=== PATIENT | male | born 1950 | race Caucasian/White ===

== ENCOUNTER 2016-06-22 00:52 | Emergency (ER) | payer SELFPAY ==
[2016-06-22] MEDS ORDERED: CLINDAMYCIN 150 MG CAP PO ONE (01:20)
--- NOTE | 2016-06-22 01:29 | Emergency Department Record ---
History of Present Illness - General Chief complaint: Abscess Stated complaint: CYST IN ARMPIT Time Seen by Provider: 06/22/16 01:03 Source: Patient Mode of Arrival: Ambulatory Limitations: No limitations - History of Present Illness Initial comments: 66 yo male presents with a right axillary area of swelling, pain, redness, and warmth. It has been ongoing for about 3 days. He did have a small cyst in that area prior. This area has greatly increased in size the last 3 days. No fever. He does have some surrounding spreading redness. MD complaint: Abscess/boil Onset/Timin -: Days(s) Year of Tetanus Vaccination: unsure Location: RUE Severity: Mild Consistency: Getting worse Improves with: None Worsens with: None Context: None Associated symptoms: Denies other symptoms Treatments Prior to Arrival: None - Related Data Previous Rx's Medication Instructions Recorded Clindamycin HCl [Cleocin HCl] 300 mg PO QID #28 capsule 06/22/16 Allergies Allergy/AdvReac Type Severity Reaction Status Date / Time No Known Drug Allergies Allergy Verified 06/22/16 01:09 Travel Screening - Travel/Exposure Within Last 30 Days Have you traveled within the last 30 days?: No - Travel/Exposure Within Last Year Have you traveled outside the [place] in the last year?: No - Additonal Travel Details Have you been exposed to anyone with a communicable illness?: No - Travel Symptoms Symptom Screening: None Review of Systems Constitutional: Denies: Chills, Fever, Malaise, Weakness Eyes: Denies: Eye discharge, Eye pain, Photophobia ENT: Denies: Congestion, Ear pain, Throat pain Respiratory: Denies: Cough, Dyspnea, Hemoptysis, Stridor, Wheezes Cardiovascular: Denies: Chest pain, Palpitations, Syncope Endocrine: Denies: Fatigue Gastrointestinal: Denies: Abdominal pain, Diarrhea, Nausea, Vomiting Genitourinary: Denies: Dysuria, Frequency, Hematuria Musculoskeletal: Denies: Arthralgia, Joint swelling, Myalgia Skin: Reports: Change in color, Lesions. Denies: Bruising Neurological: Denies: Confusion, Headache, Weakness Psychiatric: Denies: Anxiety Hematological/Lymphatic: Denies: Blood Clots, Easy bleeding, Easy bruising, Swollen glands Past Medical History - SOCIAL HISTORY Smoking Status: Never smoker Alcohol Use: Heavy Drug Use: None - RESPIRATORY Hx Respiratory Disorders: No - CARDIOVASCULAR Hx Cardio Disorders: No - NEURO Hx Neuro Disorders: No - GI Hx GI Disorders: No - Hx Genitourinary Disorders: No - ENDOCRINE Hx Endocrine Disorders: No - MUSCULOSKELETAL Hx Musculoskeletal Disorders: No - PSYCH Hx Psych Problems: No - HEMATOLOGY/ONCOLOGY Hx Hematology/Oncology Disorders: No Family Medical History Any Significant Family History?: No Physical Exam - General General Appearance: Alert, Oriented x3, Cooperative, No acute distress Limitations: No limitations - Head Head exam: Atraumatic, Normal inspection - Eye Eye exam: Normal appearance, PERRL. negative: Conjunctival injection, Periorbital swelling - ENT ENT exam: Normal exam Ear exam: Normal external inspection Nasal Exam: Normal inspection Mouth exam: Normal external inspection - Neck Neck exam: Normal inspection, Full ROM. negative: Lymphadenopathy, Tenderness - Respiratory Respiratory exam: Normal lung sounds bilaterally. negative: Accessory muscle use, Respiratory distress, Rhonchi, Stridor, Wheezes - Cardiovascular Cardiovascular Exam: Regular rate, Normal rhythm, Normal heart sounds Peripheral Pulses: 2+: Radial (R) - Rectal Rectal exam: Deferred - exam: Deferred - Extremities Extremities exam: Full ROM, Tenderness. negative: Normal inspection, Normal capillary refill Image of Full Body: 1 - right axilla demonstrates an area of warmth, swelling [id number], erythema and tenderness consistent with abscess vs infected sebaceous cyst with a small area of surrounding cellulitis - Back Back exam: Reports: Normal inspection - Neurological Neurological exam: Alert, Oriented X3 - Psychiatric Psychiatric exam: Normal affect, Normal mood - Skin Skin exam: Erythema Course Vital Signs 06/22/16 00:57 Temperature 97.6 F Pulse Rate 62 Respiratory 20 Rate Blood Pressure 183/113 Pulse Ox 92 L - Reevaluation(s) Reevaluation #1: The patient has an abscess vs an infected sebaceous cyst I discussed with him the options. He is requesting I and D which is what I recommend at this time PROCEDURE Betadine Prep Lidocaine 1% with Epi 3cc 11 blade used to make a 1.5cm incision Initial purulence was cultured The area expressed initially pus then a thick cheesy oderous material consistent with a sebaceous cyst that was infected The area was expressed until free of the white cheesy material and copiously irrigated A packing was placed in the wound He will additionally be referred to the general surgery clinic for follow up. 06/22/16 01:25 Disposition Disposition: Discharge Clinical Impression: Infected sebaceous cyst Disposition: Home, Self-Care Condition: (1) Good Instructions: Abscess Incision and Drainage (ED) Additional Instructions: Return on Wednesday to have the packing removed Clindamycin 4 times daily You are being referred to Dr Wright of general surgery given the possible recurrence of the infection/cyst Prescriptions: Clindamycin HCl [Cleocin HCl] 300 mg PO QID #28 capsule Referrals: Jameel Wright [DOCTOR OF OSTEOPATH] - [facility] [Provider Group] Forms: Patient Portal Access Time of Disposition: 01:30
== END 2016-06-22 01:55 | disposition home or self-care (01) ==
LOC: ER 00:52
DX: L72.3 Sebaceous cyst (principal)
CPT/HCPCS: 10060; 99284

== ENCOUNTER 2016-06-24 06:09 | Emergency (ER) | payer SELFPAY ==
--- NOTE | 2016-06-24 06:26 | Emergency Department Record ---
History of Present Illness - General Chief Complaint: Wound, check Stated Complaint: RECHECK Time Seen by Provider: 06/24/16 06:21 Source: Patient Mode of arrival: Ambulatory Limitations: No limitations - History of Present Illness Initial Comments: 66 yo male presents to ED for a recheck on his abscess following I & D approximately 48 hours ago. Patient is here to have packing removed from the area. Patient denies redness, increased pain, fevers, chills, or any worsening of his symptoms. MD Complaint: Wound re-check Onset/Timin -: Days(s) Initial Visit For: Abscess Returns Today for: Wound recheck Symptoms Since Prior Visit: No new symptoms, Improved Associated Symptoms: None Treatments Prior to Arrival: Other - Related Data Previous Rx's Medication Instructions Recorded Clindamycin HCl [Cleocin HCl] 300 mg PO QID #28 capsule 06/22/16 Allergies Allergy/AdvReac Type Severity Reaction Status Date / Time No Known Drug Allergies Allergy Verified 06/22/16 01:09 Travel Screening - Travel/Exposure Within Last 30 Days Have you traveled within the last 30 days?: No - Travel/Exposure Within Last Year Have you traveled outside the [place] in the last year?: No - Additonal Travel Details Have you been exposed to anyone with a communicable illness?: No - Travel Symptoms Symptom Screening: None Review of Systems Constitutional: Denies: Chills, Fever, Malaise, Night sweats Eyes: Denies: Eye discharge, Eye pain ENT: Denies: Congestion, Ear pain, Epistaxis Respiratory: Denies: Cough, Dyspnea Cardiovascular: Denies: Chest pain, Dyspnea on exertion Endocrine: Denies: Fatigue, Heat or cold intolerance Gastrointestinal: Denies: Abdominal pain, Nausea, Vomiting Genitourinary: Denies: Incontinence, Retention Musculoskeletal: Denies: Arthralgia, Back pain, Gout, Joint swelling Skin: Denies: Bruising, Change in color Neurological: Denies: Abnormal gait, Confusion, Headache, Seizure Psychiatric: Denies: Anxiety Hematological/Lymphatic: Denies: Anemia, Blood Clots Past Medical History - SOCIAL HISTORY Smoking Status: Never smoker Alcohol Use: None Drug Use: None - RESPIRATORY Hx Respiratory Disorders: No - CARDIOVASCULAR Hx Cardio Disorders: No - NEURO Hx Neuro Disorders: No - GI Hx GI Disorders: No - Hx Genitourinary Disorders: No - ENDOCRINE Hx Endocrine Disorders: No - MUSCULOSKELETAL Hx Musculoskeletal Disorders: No - PSYCH Hx Psych Problems: No - HEMATOLOGY/ONCOLOGY Hx Hematology/Oncology Disorders: No Family Medical History Any Significant Family History?: No Physical Exam - General General Appearance: Alert, Oriented x3, Cooperative, No acute distress Limitations: No limitations - Head Head exam: Atraumatic, Normocephalic, Normal inspection Head exam detail: negative: Abrasion, Contusion, Theodore's sign, General tenderness, Hematoma - Eye Eye exam: Normal appearance. negative: Conjunctival injection, Periorbital swelling, Periorbital tenderness, Scleral icterus - ENT Ear exam: negative: Auricular hematoma, Auricular trauma Nasal Exam: negative: Normal inspection, Active bleeding, Discharge Mouth exam: negative: Muffled voice, Tongue elevation, Tongue normal - Neck Neck exam: Normal inspection. negative: Meningismus, Tenderness - Respiratory Respiratory exam: Normal lung sounds bilaterally. negative: Rales, Respiratory distress, Rhonchi, Stridor - Cardiovascular Cardiovascular Exam: Regular rate, Normal rhythm, Normal heart sounds - GI/Abdominal GI/Abdominal exam: Soft. negative: Rebound, Rigid, Tenderness - Rectal Rectal exam: Deferred - exam: Deferred - Extremities Extremities exam: Tenderness. negative: Calf tenderness, Pedal edema, Other ( packing removed from cutaneous lesion in the right axilla, no erythema or surrounding area of cellulitis is present) - Back Back exam: Denies: CVA tenderness (R), CVA tenderness (L) - Neurological Neurological exam: Alert, Normal gait, Oriented X3 - Psychiatric Psychiatric exam: Normal affect, Normal mood - Skin Skin exam: Normal color. negative: Abrasion Type of lesion: negative: abrasion Course Vital Signs 06/24/16 06:12 Temperature 97.7 F Pulse Rate 58 L Respiratory 20 Rate Blood Pressure 130/84 Pulse Ox 95 - Reevaluation(s) Reevaluation #1: 06/24/16 06:25 Packing was removed from incision site with ease, area otherwise appears to be healing well. Patient appears stable for discharge at this time. Disposition Disposition: Discharge Clinical Impression: Infected sebaceous cyst Disposition: Home, Self-Care Condition: (2) Stable Instructions: Abscess Incision and Drainage (ED) Additional Instructions: Return to ED if your symptoms worsen or if you have any concerns. Follow-up with your family doctor in 3-5 days as directed. Forms: Patient Portal Access Time of Disposition: :26
== END 2016-06-24 06:29 | disposition home or self-care (01) ==
LOC: ER 06:09
DX: L72.3 Sebaceous cyst (principal)
CPT/HCPCS: 99282